=== PATIENT | female | born 1955 | race Caucasian/White ===

== ENCOUNTER 2018-02-07 16:16 | Emergency (ER) | payer OTHER ==
[~2018-02-07] VITALS: Ht 165.1 cm; Wt 70.3 kg
[2018-02-07] MEDS ORDERED: ASPIR 8181 MG (16:30)
[2018-02-07] MEDS ORDERED: AMBIEN10 MG (16:30)
== END 2018-02-07 18:39 | disposition home or self-care (01) ==
LOC: ER 16:16
DX: E16.1 Other hypoglycemia (principal)

== ENCOUNTER 2018-03-07 12:34 | Emergency (ER) | payer OTHER ==
[~2018-03-07] VITALS: Ht 165.1 cm; Wt 70.3 kg
== END 2018-03-07 15:03 | disposition home or self-care (01) ==
LOC: ER 12:34
DX: R41.0 Disorientation, unspecified (principal); R55 Syncope and collapse

== ENCOUNTER 2018-03-13 09:37 | Outpatient (CLI) | payer OTHER ==
[~2018-03-13 09:37] MED LIST: AMBIEN10 MG; ASPIR 8181 MG; EPOGEN SUBCUTANEO; IRON325 MG; PROZAC20 MG
== END 2018-03-13 10:00 | disposition home or self-care (01) ==
LOC: NUCLEAR 09:37
DX: I11.9 Hypertensive heart disease without heart failure (principal)